=== PATIENT | male | born 1975 | race Caucasian/White ===

== ENCOUNTER 2018-10-06 05:39 | Emergency (ER) | payer BC ==
[2018-10-06] MEDS ORDERED: Morphine Sulfate 2 mg/mL 1mL Syr IVP STA (06:01)
[2018-10-06 06:10] LABS: URINE SOURCE RANDOM
[2018-10-06 06:12] LABS: URINE BLOOD LARGE (NEGATIVE); URINE GLUCOSE (UA) NEGATIVE (NEGATIVE); URINE KETONE TRACE mg/dL (NEGATIVE); URINE LEUKOCYTE ESTERASE NEGATIVE (NEGATIVE); URINE MICROSCOPIC INDICATED? YES; URINE NITRATE NEGATIVE (NEGATIVE); URINE PH 6.5 (4.6 - 8.0); URINE PROTEIN TRACE mg/dL (NEGATIVE); URINE UROBILINOGEN 0.2 E.U./dL (0.2 - 1.0)
[2018-10-06 06:15] LABS: % BASOPHILS 0.8 % (0.0-2.0); % LYMPHOCYTES 13.3 % (20.0-50.0); % MONOCYTES 2.4 % (2.0-10.0); % NEUTROPHILS 82.5 % (40.0-80.0); BASOPHILE ABSOLUTE 0.1 Th/cumm (0-0.2); EOSINOPHILE ABSOLUTE 0.1 Th/cmm (0.1-0.4); HEMATOCRIT 45.1 % (41.0-60); HEMOGLOBIN 15.5 gm/dL (12-16); LYMPHOCYTE ABSOLUTE 1.2 Th/cmm (1.5-3.0); MEAN CELL VOLUME 87.4 fl (80-99); MEAN CORPUSCULAR HEMOGLOBIN 30.1 pg (26.0-30.0); MEAN CORPUSCULAR HGB CONC 34.5 pg (28.0-36.0); MONOCYTE ABSOLUTE 0.2 Th/cmm (0.3-1.0); NEUTROPHILE ABSOLUTE 7.5 Th/cmm (1.8-8.0); PLATELET COUNT 196 Th/cmm (150-400); RED BLOOD COUNT 5.16 Mil/cmm (4.30-5.70); RED CELL DISTRIBUTION WIDTH 12.4 % (11.5-20.0); WHITE BLOOD COUNT 9.1 Th/cmm (4.8-10.8)
[2018-10-06 06:18] LABS: URINE CLARITY HAZY (CLEAR); URINE COLOR YELLOW
[2018-10-06 06:20] LABS: URINE BACTERIA FEW /hpf (NONE SEEN); URINE EPITHELIAL CELLS OCCASIONAL /lpf (FEW); URINE RBC 25-50 /hpf (0-5); URINE WBC 0-2 /hpf (0-5)
[2018-10-06 06:23] LABS: URINE BILIRUBIN SMALL (NEGATIVE)
[2018-10-06 06:29] LABS: ALB/GLOB RATIO 1.7 (1.0-1.8); ALBUMIN 4.5 gm/dL (4.2-5.5); ALKALINE PHOSPHATASE 88 U/L (34-104); AMYLASE SERUM 35 U/L (29-103); ANION GAP 13.5 (7.0-16.0); BILIRUBIN,TOTAL 0.7 mg/dL (0.3-1.0); BUN - UREA NITROGEN 13 mg/dL (7-25); CALCIUM SERUM 9.8 mg/dL (8.6-10.3); CARBON DIOXIDE 25.1 mEq/L (21.0-31.0); CHLORIDE 106 mEq/L (98-107); CREATININE - SERUM 1.1 mg/dL (0.7-1.3); GFR AFRICAN-AMERICAN > 60.0 ml/min (>90); GFR NON AFRICAN-AMERICAN > 60.0 ml/min; GLUCOSE 154 mg/dL (70-105); LIPASE 21 U/L (11-82); POTASSIUM SERUM 3.6 mEq/L (3.5-5.1); SGOT 29 U/L (13-39); SGPT/ALT 51 U/L (7-52); SODIUM SERUM 141 mEq/L (136-145); TOTAL PROTEIN,SERUM 7.2 gm/dL (6.0-8.3)
[2018-10-06] MEDS ORDERED: Morphine Sulfate 2 mg/mL 1mL Syr ONE (06:40)
--- NOTE | 2018-10-06 06:46 | ED Physician Chart ---
ED Chief Complaint/HPI - Patient Information Date Seen:: 10/06/18 Time Seen:: 06:41 Chief Complaint:: Abdominal pain History of Present Illness:: 43 yo male had LLQ and lower quadrant pain since 10pm last night. The pain was fluctuating, 7/10-10/10, without radiation. Pt had nausea and vomited 7 times. Pt denied fever or chills. Pt had a watery stool this morning at 5am. Pt had similar LLQ pain resolved spontaneously 4 years ago. Allergies:: Allergies Allergy/AdvReac Type Severity Reaction Status Date / Time No Known Allergies Allergy Verified 10/06/18 05:50 Vitals:: Vital Signs - 8 hr 10/06/18 05:51 Temp 97.8 F HR 82 RR 18 BP 138/88 O2 Sat % 96 ED Review of Systems - Review of Systems General/Constitutional: No fever, No chills Skin: No rash Head: No headache Eyes: No pain ENT: No earache Neck: No neck pain Cardio Vascular: No chest pain Pulmonary: SOB GI: Nausea, Vomiting, No diarrhea Musculoskeletal: Muscle pain Neurological: No focal symptoms ED Past Medical History - Past Medical History Past Medical History: Asthma/COPD, Other (Obesity) Social History: Non Smoker, No Alcohol, No Drug Use Surgical History: None Family Medical History - Family Member Mother History Unknown: Yes ED Physical Exam - Physical Examination General/Constitutional: Awake, Alert Head: Atraumatic Eyes: PERRL Skin: No skin lesions ENMT: Nasal exam nl Neck: No nuchal rigidity Respiratory: No Wheeze/Rhonchi/Rales Cardio Vascular: RRR, No murmur, gallop, rubs, NL S1 S2 Other GI comments:: LUQ, LLQ and suprapubic tenderness. Extremities: normal strength in all extremities Neuro/Psych: Normal motor strength, No focal deficits ED Labs/Radiology/EKG Results - Lab Results Results: Laboratory Tests 10/06/18 10/06/18 10/06/18 06:08 06:13 06:13 WBC 9.1 RBC 5.16 Hgb 15.5 Hct 45.1 MCV 87.4 MCH 30.1 H MCHC Differential 34.5 RDW 12.4 Plt Count 196 MPV 8.7 Neutrophils % 82.5 H Lymphocytes % 13.3 L Monocytes % 2.4 Eosinophils % 1.0 Basophils % 0.8 Sodium 141 Potassium 3.6 Chloride 106 Carbon Dioxide 25.1 Anion Gap 13.5 BUN 13 Creatinine 1.1 Est GFR ( Amer) > 60.0 Est GFR (Non-Af Amer) > 60.0 BUN/Creatinine Ratio 11.8 Glucose 154 H Calcium 9.8 Total Bilirubin 0.7 AST 29 ALT 51 Alkaline Phosphatase 88 Total Protein 7.2 Albumin 4.5 Globulin 2.7 Albumin/Globulin Ratio 1.7 Amylase 35 Lipase 21 Urine Source RANDOM Urine Color YELLOW Urine Clarity HAZY Urine pH 6.5 Ur Specific Garber 1.015 Urine Protein TRACE Urine Glucose (UA) NEGATIVE Urine Ketones TRACE Urine Blood LARGE H Urine Nitrate NEGATIVE Urine Bilirubin SMALL H Urine Urobilinogen 0.2 Ur Leukocyte Esterase NEGATIVE Urine RBC 25-50 H Urine WBC 0-2 Ur Epithelial Cells OCCASIONAL Urine Bacteria FEW - Radiology Results Results: CT abd/pel wo contrast: 1 mm non-obstructing left renal calculus; mild fullness of the left renal collecting system without rober hydronephrosis; mildly distended stool-filled ascending colon ED Assessment - Assessment General Assessment: Abdominal pain likely due to renal colic Left renal calculus Hematuria Obesity Assessment/Comments:: CBC, CMP, lipase, amylase, UA CT abdomen/pelvis wo contrast Morphine IV Zofran IV NS 1L IV bolus Pantoprazole IV Toradol 30 mg IM ED Septic Shock - . Is Septic Shock (SBP<90, OR Lactate>4 mmol\L) present?: No - <6hrs of presentation: Vital Signs: Vital Signs - 8 hr 10/06/18 05:51 Temp 97.8 F HR 82 RR 18 BP 138/88 O2 Sat % 96 ED Reassessment (Disposition) - Reassessment Reassessment Condition:: Improved - Aftercare/Follow up Instructions Notes:: D/c home F/u PCP and urologist Return to ER if symptoms worsen Medication Prescribed:: Tamsulosin 0.4 mg po qd #30 - Patient Disposition Discharge/Transfer:: Home
[2018-10-06 07:16] LABS: INR 0.98 (0.5-1.4)
[2018-10-06] MEDS ORDERED: Sodium Chloride 0.9% 1,000 ML IV ONE (07:16)
[2018-10-06 07:51] LABS: AMPHETAMINE URINE NEGATIVE (NEGATIVE); BARBITURATES URINE NEGATIVE (NEGATIVE); BENZODIAZEPINES QUAL URINE NEGATIVE (NEGATIVE); CANNABINOID THC NEGATIVE (NEGATIVE); COCAINE METABOLITE QUAL URINE NEGATIVE (NEGATIVE); METHADONE URINE NEGATIVE (NEGATIVE); METHAMPHETAMINES QUAL URINE NEGATIVE (NEGATIVE); OPIATES (MORPHINE) QUAL. URINE NEGATIVE (NEGATIVE); PHENCYCLIDINE (PCP) URINE NEGATIVE (NEGATIVE); TRICYCLICS (TCA) QUAL. URINE NEGATIVE (NEGATIVE)
--- NOTE | 2018-10-06 07:54 | Diagnostic Imaging Report ---
CT scan abdomen and pelvis without intravenous contrast HISTORY: Pain Total DLP equals 612 CTDI equals 12.7 Axial sections were obtained from the xiphoid process down to the pubic symphysis. The liver exhibits a normal size. There is a decrease in overall hepatic parenchymal density which may be associated with changes of fatty infiltration and should be correlated with liver function tests. No focal lesions. The spleen appears normal. No abnormalities are seen in the region of the pancreas. Minimal fullness of the left renal pelvis. A 1 mm calculus is seen within the medullary region. No rober hydronephrosis. The exam of the pelvis demonstrates preservation of normal fat planes. No abnormal soft tissue masses or abnormal fluid collections. There is a mildly distended stool-filled ascending colon. No abnormalities are seen in the region of the appendix. IMPRESSION: 1. 1 mm nonobstructing left renal calculus 2. Mild fullness of the left renal collecting system without rober hydronephrosis. Significance should be correlated clinically 3. Mildly distended stool-filled ascending colon 4. Hepatic parenchymal changes which may be associated with fatty infiltration and should be correlated with liver function tests.
== END 2018-10-06 08:33 | disposition home or self-care (01) ==
LOC: ER 05:39
DX: N20.0 Calculus of kidney (principal); R31.9 Hematuria, unspecified; E66.9 Obesity, unspecified
CPT/HCPCS: 99284; 96372; 96374; 96375; 74176; 36415; 80307; 85025; 85610; 81001; 82150; 83690; 80053; C9113; J2270; J1885; J2405; J7030